=== PATIENT | female | born 1985 | race African-American/Black ===

== ENCOUNTER 2019-08-18 10:23 | Emergency (ER) | payer MEDICAID, OTHER ==
[~2019-08-18] VITALS: Ht 165.1 cm; Wt 100.0 kg
[2019-08-18 10:28] VITALS: BP 144/101
[2019-08-18] MEDS ORDERED: BACITRACIN ZINC OINT UDPKT TOP ONE (11:15)
[2019-08-18] MEDS ORDERED: TETANUS, DIPHTHERIA, PERTUSSIS VAC/PF 0.5ML (>7YR OLD) IM ONE (11:15)
[2019-08-18] MEDS ORDERED: LIDOCAINE HCL/EPINEPHRINE 1%-EPI 1:100,000 20 ML VIAL INFIL SCH (11:30)
== END 2019-08-18 12:30 | disposition home or self-care (01) ==
LOC: ER 10:36
DX: S01.112A Laceration without foreign body of left eyelid and periocular area, initial encounter (principal); Y08.89XA Assault by other specified means, initial encounter; Y93.89 Activity, other specified; Y92.89 Other specified places as the place of occurrence of the external cause; Y99.8 Other external cause status
CPT/HCPCS: 12011; 99283; J3490

== ENCOUNTER 2019-08-26 10:04 | Emergency (ER) | payer MEDICAID ==
[~2019-08-26] VITALS: Ht 165.1 cm; Wt 100.0 kg
[2019-08-26 10:10] VITALS: BP 112/61
== END 2019-08-26 10:35 | disposition home or self-care (01) ==
LOC: ER 10:04
DX: Z48.02 Encounter for removal of sutures (principal); R03.0 Elevated blood-pressure reading, without diagnosis of hypertension
CPT/HCPCS: 99281

== ENCOUNTER 2020-05-28 03:49 | Emergency (ER) | payer MEDICAID ==
[~2020-05-28] VITALS: Ht 165.1 cm; Wt 100.0 kg
[2020-05-28 06:04] LABS: BASOPHILS % 1.1 % (0.0-2.0); EOSINOPHILS % 2.6 % (0.0-5.0); HEMATOCRIT. 39.3 % (36.0-48.0); HEMOGLOBIN. 13.5 g/dL (12.0-16.0); LYMPHOCYTES % 39.8 % (20.0-50.0); MEAN CORPUSCULAR VOLUME 90.4 fL (81.0-99.0); MEAN PLATELET VOLUME 9.5 fl (7.4-10.4); MONOCYTES % 6.5 % (2.0-8.0); PLATELET 194 x1000/uL (130-400); RED BLOOD CELL COUNT 4.34 mill/uL (4.2-5.4); RED CELL DISTRIBUTION WIDTH 14.2 % (11.6-14.6)
[2020-05-28 06:11] LABS: CHLORIDE 108 mEq/L (98-107)
[2020-05-28 06:16] LABS: CLARITY URINE CLEAR (CLEAR); COLOR URINE YELLOW (YELLOW); KETONES URINE NEGATIVE (NEGATIVE); LEUKOCYTE ESTERASE URINE NEGATIVE (NEGATIVE); NITRITE URINE NEGATIVE (NEGATIVE); OCCULT BLOOD URINE 2+ (NEGATIVE); PROTEIN URINE NEGATIVE (NEGATIVE); SPECIFIC GRAVITY URINE 1.025 (1.005-1.030); UROBILINOGEN URINE 0.2 E.U./dL (0.2-1.0)
[2020-05-28 06:21] LABS: B-HCG QUANTITATIVE < 1 mIU/mL (<3)
[2020-05-28 08:36] VITALS: BP 140/73
== END 2020-05-28 08:36 | disposition home or self-care (01) ==
LOC: ER 03:49
DX: D25.9 Leiomyoma of uterus, unspecified (principal)
CPT/HCPCS: 36415; 76830; 76856; 80053; 81003; 84702; 85025; 86850; 86900; 93005; 99285